=== PATIENT | male | born 1970 | race Asian ===

== ENCOUNTER 2017-03-09 22:34 | Emergency (ER) | payer BC ==
[~2017-03-09] VITALS: Ht 175.3 cm; Wt 104.6 kg
[2017-03-09] MEDS ORDERED: ONDANSETRON 2MG/ML, 2ML ONE (23:15)
[2017-03-09] MEDS ORDERED: KETOROLAC 30 MG/1 ML ONE (23:15)
[2017-03-09] MEDS ORDERED: SODIUM CHLORIDE FLUSH 10ML SYR IVF ONE (23:30)
[2017-03-09] MEDS ORDERED: KETOROLAC 30 MG/1 ML IVPush ONE (23:30)
[2017-03-09] MEDS ORDERED: ONDANSETRON 2MG/ML, 2ML IVPush ONE (23:30)
[2017-03-09] MEDS ORDERED: SODIUM CHLORIDE 0.9% 1,000ML IVBOLUS ONE (23:30)
[2017-03-09 23:34] LABS: BLOOD UREA NITROGEN 17 mg/dL (7-18)
[2017-03-10] MEDS ORDERED: FEXO1TAB29 PO (00:23)
[2017-03-10] MEDS ORDERED: LOSA25TA5 PO (00:24)
[2017-03-10 01:13] VITALS: BP 114/67
== END 2017-03-10 02:17 | disposition home or self-care (01) ==
LOC: ED 23:56
DX: N20.1 Calculus of ureter (principal); N39.0 Urinary tract infection, site not specified; I10 Essential (primary) hypertension
CPT/HCPCS: 36415; 76770; 80048; 81003; 82040; 85025; 96361; 96374; 96375; 99285; J1885; J2405; J7030